=== PATIENT | female | born 1935 | race Caucasian/White ===

== ENCOUNTER 2016-11-19 08:56 | Observation (INO) | payer OTHER ==
[~2016-11-19] VITALS: Ht 165.1 cm; Wt 70.4 kg
[~2016-11-19 08:56] MED LIST: FOSAMAX PLUS PO
[2016-11-19 10:28] LABS: HEMATOCRIT 36.8 % (36.0-46.0); MCH 30.2 PG (29.0-34.0); MCHC 32.3 G/DL (30.0-36.0); MCV 93.4 FL (83-99); MEAN PLAT.VOLUME 10.2 uM^3 (9.5-12.4); PLATELET COUNT 241 K/uL (156-360); RBC DIS.WIDTH-CV 14.6 % (11.8-14.6); RBC DIS.WIDTH-SD 50.7 % (39-53); RED BLOOD COUNT 3.94 M/uL (3.80-5.20); WHITE BLOOD COUNT 5.9 K/uL (4.1-10.2)
[2016-11-19 10:44] LABS: CHLORIDE 105 mEq/L (99-109); POTASSIUM 4.2 mEq/L (3.7-5.4); SODIUM 135 mEq/L (136-147)
[2016-11-19 10:45] LABS: GLUCOSE 109 mg/dL (70-99)
[2016-11-19 10:47] LABS: ANION GAP 8 MEQ/L (2-14)
[2016-11-19 10:49] LABS: GFR ESTIMATE (CALCULATED) > 59 mL/min/
[2016-11-19 10:50] LABS: UREA NITROGEN (BUN) 14 mg/dL (9-23)
[2016-11-19 10:54] LABS: TROP-I INTERPRETATION INDETERMINATE; TROPONIN-I 0.35 ng/mL (0.0-0.30)
[2016-11-19 14:01] LABS: TROP-I INTERPRETATION POSITIVE; TROPONIN-I 0.75 ng/mL (0.0-0.30)
[2016-11-19] MEDS ORDERED: LEVO-T75 MCG PO (15:08)
[2016-11-19] MEDS ORDERED: FINACEA 15% GEL50 GM TP (15:08)
[2016-11-19] MEDS ORDERED: ASPIR 8181 M1 PO (15:08)
[2016-11-19] MEDS ORDERED: PRAVASTATIN SOD40 MG PO (15:08)
[2016-11-19 15:43] VITALS: BP 115/62
[2016-11-19 17:09] LABS: TROP-I INTERPRETATION POSITIVE; TROPONIN-I 0.98 ng/mL (0.0-0.30)
[2016-11-19 19:10] VITALS: BP 121/58
[2016-11-19 23:33] VITALS: BP 107/54
[2016-11-20 01:09] LABS: EOSINOPHIL (%) 0.1 % (0-5); HEMATOCRIT 31.9 % (36.0-46.0); IMMATURE GRANULOCYTE (%) 0.4 % (0.0-0.7); LYMPHOCYTE COUNT 1.1 K/uL (1.0-2.8); MCHC 32.6 G/DL (30.0-36.0); MCV 91.9 FL (83-99); MEAN PLAT.VOLUME 10.1 uM^3 (9.5-12.4); MONOCYTE (%) 10.9 % (3-12); MONOCYTE COUNT 0.8 K/uL (0-0.8); NEUTROPHIL (%) 71.8 % (45-76); PLATELET COUNT 212 K/uL (156-360); RBC DIS.WIDTH-CV 14.9 % (11.8-14.6); RBC DIS.WIDTH-SD 50.4 % (39-53); RED BLOOD COUNT 3.47 M/uL (3.80-5.20); WHITE BLOOD COUNT 6.9 K/uL (4.1-10.2)
[2016-11-20 01:27] LABS: CHLORIDE 106 mEq/L (99-109); POTASSIUM 3.8 mEq/L (3.7-5.4); SODIUM 133 mEq/L (136-147)
[2016-11-20 01:28] LABS: ADD MIUA? YES; BILIRUBIN NEGATIVE; BLOOD SMALL; COLOR YELLOW ((YELLOW)); GLUCOSE (STRIP) NEGATIVE; KETONES NEGATIVE; LEUKOCYTES MODERATE; NITRITE NEGATIVE; PROTEIN (STRIP) NEGATIVE; SPECIFIC GRAVITY 1.017 (1.000-1.030)
[2016-11-20 01:29] LABS: GLUCOSE 113 mg/dL (70-99)
[2016-11-20 01:30] LABS: ANION GAP 4 MEQ/L (2-14)
[2016-11-20 01:31] LABS: TOTAL BILIRUBIN 0.4 mg/dL (0.0-1.0)
[2016-11-20 01:32] LABS: ALKALINE PHOSPHATASE 39 IU/L (3-129)
[2016-11-20 01:33] LABS: GFR ESTIMATE (CALCULATED) > 59 mL/min/
[2016-11-20 01:44] LABS: INTER. NORMALIZED RATIO 1.1; PROTHROMBIN TIME 11.7 (9.2-11.2); PTT 56.5 (25-32)
[2016-11-20 02:21] LABS: BACTERIA NONE SEEN /HPF; EPITHELIAL CELLS RARE /HPF; HYALINE CASTS 0-5 /LPF; MUCUS TRACE /LPF
[2016-11-20 02:27] LABS: UREA NITROGEN (BUN) 22 mg/dL (9-23)
[2016-11-20 06:59] LABS: TROP-I INTERPRETATION POSITIVE; TROPONIN-I 0.91 ng/mL (0.0-0.30)
[2016-11-20 08:03] VITALS: BP 114/58
[2016-11-20 11:23] VITALS: BP 107/55
[2016-11-20 12:55] LABS: TROP-I INTERPRETATION POSITIVE; TROPONIN-I 0.68 ng/mL (0.0-0.30)
[2016-11-20] MEDS ORDERED: CIPROFLOXACIN500 M1 PO (15:37)
== END 2016-11-20 16:55 | disposition home or self-care (01) ==
LOC: EME 08:56 → EDOF 14:36 → 4EAST 14:36
PROVIDERS: Emergency Medicine; Hospitalist; Internal Medicine Cardiovascular Disease; Physician Assistant
DX: I47.1 Supraventricular tachycardia (principal); E03.9 Hypothyroidism, unspecified; E78.5 Hyperlipidemia, unspecified; I65.29 Occlusion and stenosis of unspecified carotid artery; N39.0 Urinary tract infection, site not specified; R06.02 Shortness of breath; Z88.2 Allergy status to sulfonamides
CPT/HCPCS: 71010; 80048; 80053; 81003; 83605; 84484; 85025; 85027; 85610; 85730; 87040; 93005; 99281; 99285; G0378; J0153; J7030

== ENCOUNTER 2016-12-13 18:30 | Emergency (ER) | payer OTHER ==
[~2016-12-13] VITALS: Ht 165.1 cm; Wt 65.1 kg
[~2016-12-13 18:30] MED LIST changes: +ASPIR 8181 M1 PO; +CIPROFLOXACIN500 M1 PO; +FINACEA 15% GEL50 GM TP; +LEVO-T75 MCG PO; +PRAVASTATIN SOD40 MG PO
[2016-12-13 20:15] LABS: HEMATOCRIT 39.7 % (36.0-46.0); MCH 29.8 PG (29.0-34.0); MCHC 32.2 G/DL (30.0-36.0); MCV 92.3 FL (83-99); MEAN PLAT.VOLUME 9.4 uM^3 (9.5-12.4); RBC DIS.WIDTH-CV 14.6 % (11.8-14.6); RBC DIS.WIDTH-SD 49.5 % (39-53)
[2016-12-13 20:18] LABS: PLATELET COUNT 312 K/uL (156-360)
[2016-12-13 20:25] LABS: CHLORIDE 104 mEq/L (99-109); POTASSIUM 4.1 mEq/L (3.7-5.4)
[2016-12-13 20:26] LABS: SODIUM 137 mEq/L (136-147)
[2016-12-13 20:27] LABS: GLUCOSE 110 mg/dL (70-99)
[2016-12-13 20:29] LABS: ANION GAP 8 MEQ/L (2-14)
[2016-12-13 20:31] LABS: GFR ESTIMATE (CALCULATED) > 59 mL/min/
[2016-12-13 20:32] LABS: UREA NITROGEN (BUN) 20 mg/dL (9-23)
[2016-12-13 20:35] LABS: TROP-I INTERPRETATION NEGATIVE; TROPONIN-I < 0.01 ng/mL (0.0-0.30)
[2016-12-13 22:33] LABS: TOTAL BILIRUBIN 0.6 mg/dL (0.0-1.0)
[2016-12-13 22:34] LABS: ALKALINE PHOSPHATASE 49 IU/L (3-129)
[2016-12-13 22:37] LABS: DIRECT BILIRUBIN 0.3 mg/dL (0.0-0.3)
[2016-12-13 22:38] LABS: LIPASE 39 U/L (1.0-51.0)
[2016-12-14 00:01] LABS: D-DIMER ELISA 0.34 mg/L FEU (< 0.57)
[2016-12-14] MEDS ORDERED: PERCOCET 5/31 TABLET PO (01:16)
[2016-12-14 01:40] VITALS: BP 138/79
== END 2016-12-14 01:41 | disposition home or self-care (01) ==
LOC: EME 18:30
PROVIDERS: Emergency Medicine
DX: M54.5 Low back pain (principal); R51 Headache; R10.11 Right upper quadrant pain; I47.1 Supraventricular tachycardia; I25.2 Old myocardial infarction; F32.9 Major depressive disorder, single episode, unspecified; E78.5 Hyperlipidemia, unspecified; E03.9 Hypothyroidism, unspecified
CPT/HCPCS: 71020; 72070; 72100; 76705; 80048; 80076; 83690; 84484; 85027; 85379; 93005; 99281; 99285; J2270; J2405

== ENCOUNTER 2016-12-17 02:33 | Emergency (ER) | payer OTHER ==
[~2016-12-17] VITALS: Ht 165.1 cm; Wt 64.5 kg
[~2016-12-17 02:33] MED LIST changes: +PERCOCET 5/31 TABLET PO
[2016-12-17 03:08] LABS: ADD MIUA? NO; BILIRUBIN NEGATIVE; BLOOD NEGATIVE; COLOR STRAW ((YELLOW)); GLUCOSE (STRIP) NEGATIVE; KETONES 5; LEUKOCYTES NEGATIVE; NITRITE NEGATIVE; PROTEIN (STRIP) NEGATIVE; UCUL ADDED? NO; UROBILINOGEN 0.2 MG/DL (0.2-1.0)
[2016-12-17] MEDS ORDERED: VALIUM2 MG PO (06:39)
[2016-12-17 06:48] VITALS: BP 163/82
== END 2016-12-17 06:48 | disposition home or self-care (01) ==
LOC: EME 02:33
DX: S29.012A Strain of muscle and tendon of back wall of thorax, initial encounter (principal); X58.XXXA Exposure to other specified factors, initial encounter; Z91.81 History of falling; I10 Essential (primary) hypertension; E03.9 Hypothyroidism, unspecified; E78.5 Hyperlipidemia, unspecified; Z79.82 Long term (current) use of aspirin
CPT/HCPCS: 81003; 93005; 99281; 99285

== ENCOUNTER 2016-12-18 09:44 | Emergency (ER) | payer OTHER ==
[~2016-12-18] VITALS: Ht 162.6 cm; Wt 65.4 kg
[~2016-12-18 09:44] MED LIST changes: +VALIUM2 MG PO
[2016-12-18 11:17] LABS: EOSINOPHIL (%) 0.6 % (0-5); HEMATOCRIT 37.7 % (36.0-46.0); IMMATURE GRANULOCYTE (%) 0.3 % (0.0-0.7); INSTRUMENT ABS NEUTROPHIL CT 4.1 K/uL; LYMPHOCYTE COUNT 1.9 K/uL (1.0-2.8); MCH 29.7 PG (29.0-34.0); MCHC 33.2 G/DL (30.0-36.0); MCV 89.5 FL (83-99); MEAN PLAT.VOLUME 9.3 uM^3 (9.5-12.4); MONOCYTE (%) 12.8 % (3-12); MONOCYTE COUNT 0.9 K/uL (0-0.8); NEUTROPHIL (%) 58.8 % (45-76); NEUTROPHIL COUNT 4.1 K/uL (1.8-6.4); PLATELET COUNT 270 K/uL (156-360); RBC DIS.WIDTH-SD 45.4 % (39-53); RED BLOOD COUNT 4.21 M/uL (3.80-5.20); WHITE BLOOD COUNT 6.9 K/uL (4.1-10.2)
[2016-12-18 11:29] LABS: CHLORIDE 101 mEq/L (99-109); POTASSIUM 4.5 mEq/L (3.7-5.4); SODIUM 133 mEq/L (136-147)
[2016-12-18 11:31] LABS: GLUCOSE 115 mg/dL (70-99)
[2016-12-18 11:32] LABS: ANION GAP 10 MEQ/L (2-14)
[2016-12-18 11:33] LABS: TOTAL BILIRUBIN 0.5 mg/dL (0.0-1.0)
[2016-12-18 11:34] LABS: ALKALINE PHOSPHATASE 49 IU/L (3-129)
[2016-12-18 11:35] LABS: GFR ESTIMATE (CALCULATED) > 59 mL/min/
[2016-12-18 11:36] LABS: UREA NITROGEN (BUN) 14 mg/dL (9-23)
[2016-12-18 11:38] LABS: LIPASE 16 U/L (1.0-51.0)
[2016-12-18 11:40] LABS: TROP-I INTERPRETATION NEGATIVE; TROPONIN-I < 0.01 ng/mL (0.0-0.30)
[2016-12-18 14:50] LABS: TROP-I INTERPRETATION NEGATIVE; TROPONIN-I < 0.01 ng/mL (0.0-0.30)
[2016-12-18 16:48] VITALS: BP 184/90
== END 2016-12-18 16:48 | disposition home or self-care (01) ==
LOC: EME 09:44
PROVIDERS: Emergency Medicine
DX: M54.9 Dorsalgia, unspecified (principal); M79.1 Myalgia
CPT/HCPCS: 71275; 80053; 83690; 84484; 85025; 93005; 99281; 99285; J2270; J7030